=== PATIENT | male | born 1940 | race Caucasian/White ===

== ENCOUNTER 2020-12-27 06:50 | Emergency (ER) | payer MEDICARE ==
[~2020-12-27 06:50] MED LIST: ASPIRIN CHEWABL81 MG PO; COREG 3.125M3.125 MG PO; COUMADIN1 MG PO; COUMADIN4 MG PO; FERROUS SULFAT325 MG PO; HUMALOG MI100 UNIT/3 SQ; LEVEMIR FL100 UNIT/1 SQ; LIPITOR TAB 2020 MG PO; PHOSLO 667 MG667 MG PO; PROTONIX40 MG PO
[2020-12-27 08:21] LABS: HEMOGLOBIN 10.9 gm/dl (14.0-17.5); RED BLOOD COUNT 3.56 M/UL (4.20-5.50); WHITE BLOOD COUNT 8.3 K/UL (4.5-11.0)
[2020-12-27 08:46] LABS: BUN/CREATININE RATIO 5 (0-10)
== END 2020-12-27 13:37 | disposition home or self-care (01) ==
LOC: ER1 06:50
PROVIDERS: Student in an Organized Health Care Education/Training Program
DX: S09.90XA Unspecified injury of head, initial encounter (principal); M25.551 Pain in right hip; I12.0 Hypertensive chronic kidney disease with stage 5 chronic kidney disease or end stage renal disease; E11.22 Type 2 diabetes mellitus with diabetic chronic kidney disease; N18.6 End stage renal disease; Z99.2 Dependence on renal dialysis; W20.8XXA Other cause of strike by thrown, projected or falling object, initial encounter
CPT/HCPCS: 70450; 71045; 72192; 73502; 73552; 80053; 82550; 82553; 83874; 84484; 85025; 85610; 85730; 93005; 96374; 99284; J2270

== ENCOUNTER 2021-08-21 09:46 | Emergency (ER) | payer MEDICARE ==
[~2021-08-21 09:46] MED LIST changes: -PHOSLO 667 MG667 MG PO
[2021-08-21 11:14] LABS: HEMOGLOBIN 10.1 gm/dl (14.0-17.5); RED BLOOD COUNT 3.37 M/UL (4.20-5.50); WHITE BLOOD COUNT 10.6 K/UL (4.5-11.0)
[2021-08-21 11:49] LABS: BUN/CREATININE RATIO 5 (0-10)
[2021-08-21] MEDS ORDERED: BENZONATATE100 MG PO (13:06)
[2021-08-21] MEDS ORDERED: DOXYCYCLINE HY100 MG PO (13:06)
[2021-08-21] MEDS ORDERED: IPRAT-ALBUT 0.5-3 ML INH (13:06)
== END 2021-08-21 13:42 | disposition home or self-care (01) ==
LOC: ER1 09:46
PROVIDERS: Family Medicine
DX: U07.1 COVID-19 (principal); J96.11 Chronic respiratory failure with hypoxia; E11.65 Type 2 diabetes mellitus with hyperglycemia; I12.0 Hypertensive chronic kidney disease with stage 5 chronic kidney disease or end stage renal disease; N18.6 End stage renal disease; E11.22 Type 2 diabetes mellitus with diabetic chronic kidney disease; I48.91 Unspecified atrial fibrillation; R79.1 Abnormal coagulation profile; J44.9 Chronic obstructive pulmonary disease, unspecified; Z79.82 Long term (current) use of aspirin; Z79.01 Long term (current) use of anticoagulants; Z99.2 Dependence on renal dialysis
CPT/HCPCS: 36600; 71045; 80053; 82009; 82550; 82553; 82803; 83605; 83735; 83874; 84484; 85025; 85610; 87040; 93005; 94664; 99284

== ENCOUNTER 2021-08-23 14:40 | Inpatient (IN) | payer MEDICARE ==
[~2021-08-23] VITALS: Ht 175.3 cm; Wt 120.2 kg
[~2021-08-23 14:40] MED LIST changes: +BENZONATATE100 MG PO; +DOXYCYCLINE HY100 MG PO; +IPRAT-ALBUT 0.5-3 ML INH
[2021-08-23 18:49] LABS: RED BLOOD COUNT 3.95 M/UL (4.20-5.50); WHITE BLOOD COUNT 8.8 K/UL (4.5-11.0)
[2021-08-24] MEDS ORDERED: HUMALOG100 UNIT/3 SC (00:22)
[2021-08-24] MEDS ORDERED: LANTUS SOL100 UNIT/1 SQ (00:23)
[2021-08-24 04:37] LABS: HEMOGLOBIN 11.1 gm/dl (14.0-17.5); RED BLOOD COUNT 3.75 M/UL (4.20-5.50); WHITE BLOOD COUNT 5.2 K/UL (4.5-11.0)
[2021-08-24 04:59] LABS: BUN/CREATININE RATIO 6 (0-10)
[2021-08-24 10:20] LABS: CORONOAVIRUS 229E Not Detected (Not Detectd)
[2021-08-24 10:21] LABS: BORDETELLA PARAPERTUSSIS Not Detected (Not Detectd); BORDETELLA PERTUSSIS Not Detected (Not Detectd); CHLAMYDIA PNEUMONIAE Not Detected (Not Detectd); CORONAVIRUS HKU1 Not Detected (Not Detectd); CORONAVIRUS NL63 Not Detected (Not Detectd); CORONAVIRUS OC43 Not Detected (Not Detectd); HUMAN METAPNEUMOVIRUS Not Detected (Not Detectd); HUMAN RHINOVIRUS/ENTEROVIRUS Not Detected (Not Detectd); INFLUENZA A Not Detected (Not Detectd); INFLUENZA B Not Detected (Not Detectd); MYCOPLASMA PNEUMONIAE Not Detected (Not Detectd); PARAINFLUENZA VIRUS 1 Not Detected (Not Detectd); PARAINFLUENZA VIRUS 2 Not Detected (Not Detectd); PARAINFLUENZA VIRUS 3 Not Detected (Not Detectd); PARAINFLUENZA VIRUS 4 Not Detected (Not Detectd); RESPIRATORY SYNCYTIAL VIRUS Not Detected (Not Detectd)
[2021-08-24] MEDS ORDERED: PHOSLO 667 MG667 MG PO (13:57)
[2021-08-24 14:01] LABS: SARS-CoV-2 DETECTED (Not Detectd)
[2021-08-24] MEDS ORDERED: ZINC50 M2 PO (16:13)
[2021-08-24] MEDS ORDERED: VITAMIN B-121000 MCG PO (16:14)
[2021-08-24] MEDS ORDERED: ASCORBIC ACID500 MG PO (16:14)
[2021-08-25 03:12] LABS: RED BLOOD COUNT 3.39 M/UL (4.20-5.50)
[2021-08-26 02:36] LABS: HEMOGLOBIN 10.3 gm/dl (14.0-17.5); RED BLOOD COUNT 3.39 M/UL (4.20-5.50); WHITE BLOOD COUNT 9.9 K/UL (4.5-11.0)
[2021-08-27 02:47] LABS: HEMOGLOBIN 10.5 gm/dl (14.0-17.5); RED BLOOD COUNT 3.45 M/UL (4.20-5.50)
[2021-08-28 03:11] LABS: HEMOGLOBIN 10.9 gm/dl (14.0-17.5); RED BLOOD COUNT 3.62 M/UL (4.20-5.50); WHITE BLOOD COUNT 12.4 K/UL (4.5-11.0)
[2021-08-28] MEDS ORDERED: DECADRON6 MG PO (07:58)
[2021-08-29 08:13] LABS: HBSAG SCREEN Negative (Negative); HEP A AB, IGM Negative (Negative); HEP B CORE AB, IGM Negative (Negative); HEP C VIRUS AB <0.1 (0.0-0.9)
== END 2021-08-28 13:52 | disposition home health service (06) | DRG 177 ==
LOC: ER1 14:40 → CDU 21:30 → PROG CARE 21:30
PROVIDERS: Emergency Medicine; Internal Medicine; Internal Medicine Nephrology; ADMIT Internal Medicine
PROC: 5A09457 Assistance with Respiratory Ventilation, 24-96 Consecutive Hours, Continuous Positive Airway Pressure (ICD-10-PCS; 2021-08-23)
PROC: XW033E5 Introduction of Remdesivir Anti-infective into Peripheral Vein, Percutaneous Approach, New Technology Group 5 (ICD-10-PCS; 2021-08-24)
PROC: 5A0945A Assistance with Respiratory Ventilation, 24-96 Consecutive Hours, High Flow/Velocity Cannula (ICD-10-PCS; 2021-08-24)
PROC: 3E0333Z Introduction of Anti-inflammatory into Peripheral Vein, Percutaneous Approach (ICD-10-PCS; 2021-08-25)
PROC: B24BZZZ Ultrasonography of Heart with Aorta (ICD-10-PCS; 2021-08-25)
PROC: 8E0ZXY6 Isolation (ICD-10-PCS; principal; 2021-08-26)
PROC: 5A1D70Z Performance of Urinary Filtration, Intermittent, Less than 6 Hours Per Day (ICD-10-PCS; 2021-08-28)
DX: U07.1 COVID-19 (principal); J12.82 Pneumonia due to coronavirus disease 2019; N18.6 End stage renal disease; J96.21 Acute and chronic respiratory failure with hypoxia; J96.22 Acute and chronic respiratory failure with hypercapnia; I12.0 Hypertensive chronic kidney disease with stage 5 chronic kidney disease or end stage renal disease; J44.1 Chronic obstructive pulmonary disease with (acute) exacerbation; E66.2 Morbid (severe) obesity with alveolar hypoventilation; E87.1 Hypo-osmolality and hyponatremia; J98.11 Atelectasis; I48.0 Paroxysmal atrial fibrillation; G47.33 Obstructive sleep apnea (adult) (pediatric); E11.65 Type 2 diabetes mellitus with hyperglycemia; I08.1 Rheumatic disorders of both mitral and tricuspid valves; E87.5 Hyperkalemia; E78.5 Hyperlipidemia, unspecified; E87.70 Fluid overload, unspecified; I25.10 Atherosclerotic heart disease of native coronary artery without angina pectoris; E11.22 Type 2 diabetes mellitus with diabetic chronic kidney disease; R00.1 Bradycardia, unspecified; Z79.01 Long term (current) use of anticoagulants; Z79.4 Long term (current) use of insulin; Z91.14 Patient's other noncompliance with medication regimen; Z95.5 Presence of coronary angioplasty implant and graft; Z91.15 Patient's noncompliance with renal dialysis; Z82.49 Family history of ischemic heart disease and other diseases of the circulatory system; Z68.35 Body mass index [BMI] 35.0-35.9, adult
CPT/HCPCS: ECHO; 36415; 36600; 71045; 80048; 80053; 80074; 80202; 82550; 82553; 82803; 82962; 83540; 83550; 83605; 83615; 83735; 83874; 83880; 84100; 84132; 84484; 85025; 85027; 85610; 86140; 87040; 87633; 90937; 93005; 93306; 94640; 94660; 94760; 96374; 97161; 99285; J1100; J2185; J3370; J7030; J7050; J7070; P9047